=== PATIENT | male | born 1980 | race African-American/Black ===

== ENCOUNTER 2017-03-24 16:01 | Emergency (ER) | payer OTHER ==
[~2017-03-24] VITALS: Ht 182.9 cm; Wt 149.7 kg
[~2017-03-24 16:01] MED LIST: ACETAMINOPHEN-1 EAC1 PO; FLEXERIL PO; NORCO 5-325 TA1 EACH PO; PREDNISONE 20 M20 MG PO; XANAX 0.25 MG0.25 MG PO; XANAX 0.5 MG0.5 MG PO
[2017-03-24] MEDS ORDERED: MOBIC15 MG PO (19:42)
[2017-03-24 20:00] VITALS: BP 158/98
== END 2017-03-24 20:00 | disposition home or self-care (01) ==
LOC: ER 16:01
DX: S53.401A Unspecified sprain of right elbow, initial encounter (principal); S56.419A Strain of extensor muscle, fascia and tendon of finger, unspecified finger at forearm level, initial encounter; M25.531 Pain in right wrist; M76.51 Patellar tendinitis, right knee; E66.9 Obesity, unspecified; Z68.41 Body mass index [BMI] 40.0-44.9, adult; F17.210 Nicotine dependence, cigarettes, uncomplicated; Z88.1 Allergy status to other antibiotic agents; W22.8XXA Striking against or struck by other objects, initial encounter; Y93.61 Activity, american tackle football; Y92.89 Other specified places as the place of occurrence of the external cause; Y99.9 Unspecified external cause status

== ENCOUNTER 2017-08-01 19:04 | Emergency (ER) | payer OTHER ==
[~2017-08-01] VITALS: Ht 182.9 cm; Wt 149.7 kg
[~2017-08-01 19:04] MED LIST changes: +MOBIC15 MG PO
[2017-08-01] MEDS ORDERED: BENADRYL25 MG PO (19:10)
[2017-08-01] MEDS ORDERED: IBUPROFEN 800800 M1 PO (19:53)
[2017-08-01 21:09] VITALS: BP 171/112
== END 2017-08-01 21:10 | disposition home or self-care (01) ==
LOC: ER 19:04
DX: J02.0 Streptococcal pharyngitis (principal); E66.1 Drug-induced obesity; F17.210 Nicotine dependence, cigarettes, uncomplicated; F10.99 Alcohol use, unspecified with unspecified alcohol-induced disorder; Z88.1 Allergy status to other antibiotic agents; Z98.890 Other specified postprocedural states

== ENCOUNTER 2017-11-16 13:22 | Emergency (ER) | payer OTHER ==
[~2017-11-16] VITALS: Ht 182.9 cm; Wt 156.5 kg
--- NOTE | ~2017-11-16 | EKG ---
[address] [address] [place] [address] ELECTROCARDIOGRAM REPORT Name: GWEN MCMAHAN Room #: [facility]#: [id number] Admission: Attend Phys: Discharge: Date of : 82 Report #: [id number] THIS REPORT FOR: //name// [facility] ED Test Date: 2017-11-16 Test Time: 14:17:12 Pat Name: GWEN MCMAHAN Department: Room: Gender: M [employer]ist: alma : 1980 Requested By: Bekah Griffith Order Number: [id number] MD: Laith Nam Measurements Intervals Cornelius Rate: 66 P: 30 MO: 160 QRS: -18 QRSD: 113 T: 17 QT: 396 QTc: 415 Interpretive Statements Sinus rhythm Voltage criteria for Left ventricular hypertrophy Compared to ECG 10/20/2016 03:32:01 No significant change was found Electronically Signed On 11-16-2017 14:38:16 [employer] by Laith Nam [email or web address] <ELECTRONICALLY SIGNED> By: Laith Nam MD, [facility] 11/16/17 1438 1417 1417 Laith Nam MD, FACC /EPI
[~2017-11-16 13:22] MED LIST changes: +BENADRYL25 MG PO; +IBUPROFEN 800800 M1 PO; +NOHOMEMEDICATIONS
[2017-11-16 14:38] LABS: ABSOLUTE NEUTROPHILS 7.2 thou/uL (1.4-8.2); BASOPHILS 0.8 % (0.0-2.0); EOSINOPHILS 1.8 % (0.0-3.0); HEMATOCRIT 45.8 % (42.0-52.0); HEMOGLOBIN 15.6 gm/dL (14.0-18.0); LYMPHOCYTES 19.4 % (24.0-44.0); MCH 28.9 pg (26.0-34.0); MCHC 34.2 g/dL (28.0-37.0); MCV 84.7 fL (80.0-100.0); MONOCYTES 6.5 % (1.0-8.0); PLATELET COUNT 307 thou/uL (150-400); POLYS 71.5 % (36.0-66.0); RDW 14.2 % (10.5-14.5); WBC 10.1 thou/uL (4.0-11.0)
[2017-11-16 14:50] LABS: ANION GAP 7 mmol/L (7-16); BUN 10 mg/dL (7-18); CALCIUM 9.1 mg/dL (8.5-10.1); CHLORIDE 104 mmol/L (98-107); CO2 27 mmol/L (21-32); CREATININE 1.2 mg/dL (0.7-1.3); GLUCOSE 130 mg/dL (74-106); POTASSIUM 3.7 mmol/L (3.5-5.1); SODIUM 138 mmol/L (136-145)
[2017-11-16 14:56] LABS: ALBUMIN 3.5 g/dL (3.4-5.0); SGOT 23 U/L (15-37); SGPT 36 U/L (30-65); TOTAL BILIRUBIN 0.6 mg/dL (<0.1-1.0); TOTAL PROTEIN 7.5 g/dL (6.4-8.2); TROPONIN-I < 0.04 ng/mL (<0.06)
[2017-11-16 16:02] LABS: URINE BILIRUBIN NEGATIVE (Negative); URINE BLOOD NEGATIVE (Negative); URINE CLARITY CLEAR; URINE COLOR YELLOW; URINE GLUCOSE-RANDOM* NEGATIVE (Negative); URINE KETONES NEGATIVE (Negative); URINE LEUKOCYTES NEGATIVE (Negative); URINE NITRITE NEGATIVE (Negative); URINE PROTEIN (DIPSTICK) NEGATIVE (Negative); URINE SPECIFIC GRAVITY 1.015 (1.005-1.035); URINE UROBILINOGEN 0.2 E.U./dl (0.2-1.0)
[2017-11-16 16:10] LABS: AMP/METHAMP Negative (Negative); BARBITURATES Negative (Negative); BENZODIAZEPINES Negative (Negative); COCAINE Negative (Negative); METHADONE Negative (Negative); OPIATES Negative (Negative); PCP Negative (Negative)
[2018-03-20] MEDS ORDERED: ONDANSETRON HCL4 M2 PO (21:24)
== END 2017-11-16 16:35 | disposition home or self-care (01) ==
LOC: ER 13:22
PROVIDERS: Nurse Practitioner Family
DX: R00.2 Palpitations (principal); F41.9 Anxiety disorder, unspecified; F17.210 Nicotine dependence, cigarettes, uncomplicated; E66.9 Obesity, unspecified; H61.20 Impacted cerumen, unspecified ear; Z88.0 Allergy status to penicillin; Z98.890 Other specified postprocedural states